=== PATIENT | male | born 2000 | race American Indian/Alaskan Native ===

== ENCOUNTER 2021-11-02 16:01 | Emergency (ER) | payer OTHER ==
[2021-11-02 17:34] VITALS: BP 121/65
[2021-11-02] MEDS ORDERED: PHENYLEPHRINE 1% NS ONE (20:47)
--- NOTE | 2021-11-02 20:50 | Emergency Department Report ---
ED ENT HPI - General Chief complaint: Sore Throat Stated complaint: NOSE/MOUTH BLEEDING Time Seen by Provider: 11/02/21 20:45 Source: patient Mode of arrival: Ambulatory Limitations: No Limitations - History of Present Illness Initial comments: 21-year-old F Bangl[place] male with no significant past medical history but reports having a few day history of nasal congestion cough coryza and sore throat reports waking up from his sleep today with a nosebleed. Nosebleed spontaneously resolved for about 2 hours before reemerging after a coughing/sneezing spell. Since he restarted about an hour prior to arrival his since then again spontaneously resolved and has been started by the last hour reports no fever, chills, sweats any recent nasal trauma, headache, dizziness. MD complaint: epistaxis -: Sudden - Related Data Allergies Allergy/AdvReac Type Severity Reaction Status Date / Time No Known Allergies Allergy Unverified 11/02/21 17:31 ED Dental HPI - General Chief complaint: Sore Throat Stated complaint: NOSE/MOUTH BLEEDING Time Seen by Provider: 11/02/21 20:45 Source: patient Mode of arrival: Ambulatory Limitations: No Limitations - Related Data Allergies Allergy/AdvReac Type Severity Reaction Status Date / Time No Known Allergies Allergy Unverified 11/02/21 17:31 ED Review of Systems ROS: Stated complaint: NOSE/MOUTH BLEEDING Other details as noted in HPI Comment: All other systems reviewed and negative ED Past Medical Hx - Past Medical History Previous Medical History?: No - Surgical History Past Surgical History?: Yes Additional Surgical History: Byron Achilles tendon ED Physical Exam - General Limitations: No Limitations General appearance: alert, in no apparent distress - Head Head exam: Present: atraumatic, normocephalic - Eye Eye exam: Present: normal appearance, PERRL, EOMI Pupils: Present: normal accommodation - ENT ENT exam: Present: mucous membranes moist, TM's normal bilaterally, other (Pharynx has mild erythema no exudate). Absent: normal exam (Area of bleeding is visualized within the left nasal cavity but not active at this present time. No evidence of any septal perforation or deviation. No foreign bodies visualized. No cellulitis or other infectious processes visualized appreciate) - Neck Neck exam: Present: normal inspection, full ROM - Respiratory Respiratory exam: Present: normal lung sounds bilaterally. Absent: respiratory distress - Cardiovascular Cardiovascular Exam: Present: regular rate, normal rhythm. Absent: systolic murmur, diastolic murmur, rubs, gallop - GI/Abdominal GI/Abdominal exam: Present: soft, normal bowel sounds - Rectal Rectal exam: Present: deferred - Extremities Exam Extremities exam: Present: normal inspection - Back Exam Back exam: Present: normal inspection - Neurological Exam Neurological exam: Present: alert, oriented X3 - Psychiatric Psychiatric exam: Present: normal affect, normal mood - Skin Skin exam: Present: warm, dry, intact, normal color. Absent: rash ED Course Vital Signs 11/02/21 17:33 Temperature 99 F Pulse Rate 81 Respiratory 20 Rate Blood Pressure 121/65 [Right] O2 Sat by Pulse 98 Oximetry ED Medical Decision Making - Medical Decision Making Symptoms emerged from today with nosebleed which was controlled with Andrez- Synephrine and pressure. Most likely his bleeding was secondary to the respiratory tract infection causing some fragile skin inside nose and uncontrollable advised follow-up with his primary care provider for reevaluation. To return should symptoms worsen Critical care attestation.: If time is entered above; I have spent that time in minutes in the direct care of this critically ill patient, excluding procedure time. ED Disposition Clinical Impression: Epistaxis not due to trauma Disposition: HOME / SELF CARE / HOMELESS Is pt being admited?: No Does the pt Need Aspirin: No Condition: Stable Instructions: Nosebleed, Adult Additional Instructions: Seen and evaluated emergency department today for nosebleed. Spontaneously resolved for the most part resolved. Nose was packed with Andrez-Synephrine gauze and pants hemostasis was achieved even after manipulation of the nasal cavity. Please be sure to to refrain from very hot and dry conditions and keep nasal passages moisturized. Refrain from any intranasal manipulation and excessive sneezing coughing or inhalation irritants Referrals: [facility] [Provider Group] - 3-5 Days MERLYN SHERMAN MD [Staff Physician] - 3-5 Days
== END 2021-11-03 00:30 | disposition home or self-care (01) ==
LOC: ED 16:01
DX: R04.0 Epistaxis (principal); R09.89 Other specified symptoms and signs involving the circulatory and respiratory systems; R05.9 Cough, unspecified; Z98.890 Other specified postprocedural states; Z79.899 Other long term (current) drug therapy
CPT/HCPCS: 99282